=== PATIENT | male | born 1950 | race Caucasian/White ===

== ENCOUNTER → 2023-07-22 | Outpatient (REF) | payer MEDICARE | LOC: M LAB REF 16:34 | PROVIDERS: ATTEND Podiatrist | DX: L03.032 Cellulitis of left toe (principal) ==

== ENCOUNTER → 2023-12-28 | Outpatient (CLI) | payer MEDICARE | LOC: M CARPUL 10:47 | PROVIDERS: ATTEND Physician Assistant | DX: I50.32 Chronic diastolic (congestive) heart failure (principal); I77.810 Thoracic aortic ectasia; I35.8 Other nonrheumatic aortic valve disorders ==

== ENCOUNTER → 2024-10-16 | Outpatient (REF) | payer MEDICARE | LOC: M SFHCRHEU 16:58 | PROVIDERS: ATTEND Internal Medicine Rheumatology | DX: M1A.9XX1 Chronic gout, unspecified, with tophus (tophi) (principal); Z86.79 Personal history of other diseases of the circulatory system; N28.9 Disorder of kidney and ureter, unspecified ==